=== PATIENT | female | born 2000 | race Caucasian/White ===

== ENCOUNTER → 2020-07-15 16:59 | Outpatient (BNVA) | payer SELFPAY | PROVIDERS: Family Provider Family Medicine; PCP Family Medicine; Visit Provider Nurse Practitioner Family | DX: Z20.828 Contact with and (suspected) exposure to other viral communicable diseases (principal) | CPT/HCPCS: 87635 ==

== ENCOUNTER 2020-10-11 18:00 | Inpatient (IN) | payer SELFPAY ==
[2020-10-11 18:17] VITALS: BP 117/80; PULSE 77; RESP 18; TEMP 37; O2SAT 99; BMI 29.2
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
[2020-10-11 20:27] LABS: Amphetamines Screen Urine Negative (Negative); Barbiturates Screen Urine Negative (Negative); Benzodiazepines Screen Urine Negative (Negative); Cocaine Screen Urine Negative (Negative); Opiate Screen Urine Negative (Negative); PCP Screen Urine Negative (Negative); THC Screen Urine Negative (Negative)
[2020-10-11 20:55] LABS: Add Urine Microscopic? YES; Bilirubin Urine Neg (Negative); Blood Urine Neg (Negative); Glucose Urine UA Norm (Normal); Ketones Urine 1+ (Negative); Leukocyte Esterase Urine Trace (Negative); Nitrate Urine Negative (Negative); Protein Urine Neg (Negative); Sulfosalicylic Acid Urine Negative (Negative); Urine Appearance SL Hazy (CLEAR); Urine Color Yellow (Yellow); Urobilinogen Urine 1 mg/dL (Negative); pH Urine 8 (5-7)
[2020-10-11 20:56] LABS: HCG Qualitative Urine. Negative (Negative)
[2020-10-11 20:58] LABS: Add Urine Culture? No; Bacteria Urine 1+ /hpf; Squamous Epithelial Cell Urine 15-25 /hpf (0-5)
[2020-10-11 21:03] VITALS: BP 103/69; PULSE 73; RESP 16; O2SAT 96
[2020-10-11 21:08] LABS: Basophils % 0.1 %; Eosinophils % 0.1 %; Hematocrit 43.9 % (37.0-47.0); Hemoglobin 14.9 g/dL (11.5-15.3); Lymphocytes # 1.9 10^3/uL (0.8-4.8); Mean Corpuscular HGB Conc 33.9 g/dL (30.0-36.0); Mean Corpuscular Hemoglobin 32.1 pg (28.0-34.0); Mean Corpuscular Volume 94.6 fL (81-99); Mean Platelet Volume 9.9 fL (7.4-10.4); Monocytes # 0.6 10^3/uL (0.2-0.9); Monocytes % 7.4 %; Neutrophils # 4.94 10^3/uL (1.8-7.7); Neutrophils % 66.3 %; Nucleated Red Blood Cells % 0 %; Platelet Count 252 10^3/cmm (130-400); Red Blood Count 4.64 10^6/uL (4.1-5.3); Red Cell Distribution Width 11.8 % (12.1-15.1); White Blood Count 7.5 10^3/uL (4.0-10.0)
[2020-10-11 22:00] VITALS: BP 101/60; PULSE 64; RESP 16; O2SAT 100
[2020-10-11 22:02] LABS: Alanine Aminotransferase 16 U/L (0-33); Albumin Level 4.2 g/dL (3.5-5.2); Alkaline Phosphatase 106 IU/L (35-105); Anion Gap 14.6 (5-19); Aspartate Amino Transferase 16 U/L (0-32); Blood Urea Nitrogen 13 mg/dL (6-20); Calcium 9.6 mg/dL (8.5-10.5); Carbon Dioxide 26 mmol/L (22-29); Chloride 102 mmol/L (98-107); Globulin 3.4 g/dL (1.3-4.6); Glomerular Filtration Rate 126.2 mL/min (90-130); Glucose 89 mg/dL (65-115); Osmolality Calculated 288 mOsm/kg (285-295); Potassium 3.6 mmol/L (3.5-5.1); Sodium 139 mmol/L (136-145); Thyroid Stimulating Hormone 2.22 uIU/mL (0.27-4.20); Total Bilirubin 0.3 mg/dL (0.15-1.2); Total Protein 7.6 g/dL (6.6-8.7)
[2020-10-11 22:10] LABS: Acetaminophen < 5.0 ug/mL (10-30); Alcohol Level < 10 mg/dL (0-10); Salicylate < 0.3 mg/dL (3-10)
[2020-10-11 23:00] VITALS: BP 125/83; PULSE 81; RESP 16; TEMP 36.5; O2SAT 96
[2020-10-12 00:38] VITALS: BP 125/83; PULSE 81; RESP 16; TEMP 36.5; O2SAT 98
[2020-10-12] MEDS: hyDROXYzine 25 mg Capsule 50 MG PO ×3 (01:39→20:27)
[2020-10-12] MEDS: trazodone 50 mg Tablet PO ×2 (01:39→20:27)
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
--- NOTE | 2020-10-12 03:00 | PC.NURSE ---
At 0130 the patient complained of difficulty falling asleep and anxiety. Vistaril 50 mg po given for the anxiety. Trazodone 50 mg po given for insomnia. Med teaching for the two meds completed prior to administration. The patient verbalized understanding of the meds.
[2020-10-12 06:00] VITALS: BP 102/65; PULSE 58; RESP 17; TEMP 36.8; O2SAT 96
--- NOTE | 2020-10-12 08:02 | PC.NURSE ---
Addendum entered by Cassandra Cuevas LPN 10/12/20 10:29: prn med effective no further c/o anxiety Original Note: PRN VISTARIL 50 MG GIVEN PO PER PT C/O STATED ANXIETY. PT SOMEWHAT WITHDRAWN, WILL CONT TO MONITOR
[2020-10-12 14:00] VITALS: BP 101/65; PULSE 76; RESP 18; TEMP 36.6
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
[2020-10-12] MEDS: buPROPion SR (12 HR) 150 mg Tablet PO (15:14)
[2020-10-12 20:08] VITALS: BP 105/63; PULSE 67; RESP 18; TEMP 36.7; O2SAT 95
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
[2020-10-13 05:45] VITALS: BMI 29.2
[2020-10-13 06:00] VITALS: BP 112/71; PULSE 75; RESP 16; TEMP 36.8; O2SAT 97
[2020-10-13] MEDS: buPROPion SR (12 HR) 150 mg Tablet PO (08:40)
[2020-10-13 14:00] VITALS: BP 103/67; PULSE 80; RESP 18; TEMP 37.4; O2SAT 97
[2020-10-13 19:45] VITALS: BP 96/60; PULSE 74; RESP 18; TEMP 36.1; O2SAT 97
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
[2020-10-13] MEDS: hyDROXYzine 25 mg Capsule 50 MG PO (20:36)
[2020-10-13] MEDS: trazodone 50 mg Tablet PO (20:36)
[2020-10-14 06:00] VITALS: BP 93/54; PULSE 59; RESP 16; TEMP 36.9; O2SAT 98
[2020-10-14] MEDS: buPROPion SR (12 HR) 150 mg Tablet PO ×2 (07:41→17:34)
[2020-10-14 14:00] VITALS: BP 111/72; PULSE 75; RESP 16; TEMP 37.2; O2SAT 99
[2020-10-14 16:49] VITALS: BP 111/72; PULSE 75; RESP 16; TEMP 37.2; O2SAT 99
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
== END 2020-10-14 18:10 | disposition home or self-care (01) | DRG 881 ==
LOC: ER 20:03 → NP 22:45
PROVIDERS: Nurse Practitioner Family; Admitting Provider Psychiatry & Neurology Psychiatry; Emergency Provider Emergency Medicine; PCP Family Medicine; Visit Provider Psychiatry & Neurology Psychiatry
DX: F32.9 Major depressive disorder, single episode, unspecified (principal); R45.851 Suicidal ideations; F10.10 Alcohol abuse, uncomplicated; F15.11 Other stimulant abuse, in remission; R45.850 Homicidal ideations; Z91.14 Patient's other noncompliance with medication regimen
CPT/HCPCS: 12345; 80053; 80306; 80307; 81001; 81025; 84443; 85025; 99284

== ENCOUNTER 2021-06-27 01:32 | Emergency (ER) | payer SELFPAY ==
[2021-06-27 01:41] VITALS: BP 131/89; PULSE 114; RESP 20; TEMP 36.9; O2SAT 100; BMI 22.8
--- NOTE | 2021-06-27 01:45 | ED_ITS ---
HPI - Female Genitourinary General: Chief complaint: Vaginal Bleeding Stated complaint: Vaginal Bleeding Time Seen by Provider: 06/27/21 01:42 Source: patient Mode of arrival: ambulatory Limitations: no limitations History of Present Illness: HPI Narrative: 20-year-old female states she has irregular menstruation. She states that today she has had bleeding has been heavier than normal. States her last restriction has been for months. States she is having some lower abdominal cramping. States she has been passing blood clots and going through multiple tampons. She is unsure if she is . States her pain currently is 2 out of 10. She had no vomiting or diarrhea. Denies any lightheadedness. Associated symptoms: Deny abdominal pain, headache(s) or nausea Date of Last Menstrual Period: 09/24/20 Review of Systems Const: Denies: fever(s), chills, body aches or change in appetite Eyes: Denies: blurry vision or eye discomfort ENMT: Denies: throat pain or dental pain Card: Denies: chest pain Resp: Denies: dyspnea GI: Denies: abdominal pain, nausea, vomiting or diarrhea : Reports: vaginal bleeding Musc: Denies: neck pain or back pain Skin/Breast: Denies: rash Neuro: Denies: headache(s) Psych: Denies: depression Reji/Lymph: Denies: easy bruising All/Imm: Denies: urticaria PFS ED PFSH: Medical History (Updated 06/27/21 @ 03:28 by Jason Torres MD) Psychiatric care Female Reproductive History: Date of last menstrual period: 09/24/20 Physical Exam Const: COMMON NORMALS: no acute distress, patient oriented x3 and healthy appearing HENMT: COMMON NORMALS: normocephalic and atraumatic HEAD & SCALP: normocephalic and atraumatic Eye: COMMON NORMALS: Equal, round and reactive pupils present and EOMs intact bilaterally PUPIL: Yes Equal, round and reactive pupils present Neck/C-Spine: COMMON NORMALS: full ROM and supple Chest: COMMONS NORMALS: normal inspection of the chest and normal palpation of entire chest wall Resp: COMMON NORMALS: normal respiratory effort, No retractions, No use of accessory muscles and clear to auscultation bilaterally AUSCULTATION: clear to auscultation bilaterally Cardio: COMMON NORMALS: regular rhythm and No murmurs present (Cardio) RATE: tachycardic RHYTHM: regular rhythm GI: COMMON NORMALS: Normal to inspection, nondistended, normoactive bowel sounds present, Soft to palpation, non-tender and no masses PALPATION: Yes Soft to palpation Extremity: COMMON NORMALS: normal to inspection and full ROM Neuro: COMMON NORMALS: patient oriented x3, moves all extremities and no focal motor deficits Psych: COMMON NORMALS: mental status grossly normal, Normal thought process present and cooperative THOUGHT PROCESS: Normal thought process present Skin: COMMON NORMALS: no rashes or lesions noted and no wounds GENERAL SKIN EXAM: no rashes or lesions noted Course Vital Signs: Vital signs: Vital Signs Temperature 98.5 F 06/27/21 01:41 Pulse Rate 114 H 06/27/21 01:41 Respiratory Rate 20 H 06/27/21 01:41 Blood Pressure 131/89 06/27/21 01:41 Pulse Oximetry 100 06/27/21 01:41 MDM - Female MDM Narrative: Medical decision making narrative: Patient presents with vaginal bleeding is likely her menstruation. Likely heavy due to irregular menstruation. Her hemoglobin here is normal and her is negative. She is stable for discharge is to follow-up PCP and return if worsening. Lab Data: Labs: Lab Results 06/27/21 06/27/21 06/27/21 01:57 01:57 01:57 WBC 10.7 10^3/uL H 10 ^3/uL (4.0-10.0) RBC 3.95 10^6/uL L 10 ^6/uL (4.1-5.3) Hgb 12.8 g/dL g/dL (11.5-15.3) Hct 37.8 % % (37.0-47.0) MCV 95.7 fl fl (81-99) MCH 32.4 pg pg (28.0-34.0) MCHC 33.9 g/dL g/dL (30.0-36.0) RDW 12.9 % % (12.1-15.1) Plt Count 267 10^3/cmm 10^3 /cmm (130-400) MPV 9.1 fL fL (7.4-10.4) Neut % (Auto) 69.4 % % Lymph % (Auto) 21.0 % % Platte % (Auto) 8.0 % % Eos % (Auto) 1.1 % % Baso % (Auto) 0.3 % % Neut # (Auto) 7.40 10^3/uL 10^3 /uL (1.8-7.7) Lymph # (Auto) 2.2 10^3/uL 10^3/ uL (0.8-4.8) Platte # (Auto) 0.9 10^3/uL 10^3/ uL (0.2-0.9) Eos # (Auto) 0.1 10^3/uL 10^3/ uL (0.0-0.8) Baso # (Auto) 0.0 10^3/uL 10^3/ uL (0.0-0.1) Nucleated RBC % (a uto) 0 % % Nucleated RBCs # 0.0 /100WBC /100W BC Sodium Cancelled Potassium Cancelled Chloride Cancelled Carbon Dioxide Cancelled Anion Gap Cancelled BUN Cancelled Creatinine Cancelled GFR Calculation Cancelled Glucose Cancelled Calculated Osmolal ity Cancelled Calcium Cancelled Total Bilirubin Cancelled AST Cancelled ALT Cancelled Alkaline Phosphata se Cancelled Total Protein Cancelled Albumin Cancelled Globulin Cancelled HCG, Qual Cancelled 06/27/21 06/27/21 02:58 02:58 WBC RBC Hgb Hct MCV MCH MCHC RDW Plt Count MPV Neut % (Auto) Lymph % (Auto) Platte % (Auto) Eos % (Auto) Baso % (Auto) Neut # (Auto) Lymph # (Auto) Platte # (Auto) Eos # (Auto) Baso # (Auto) Nucleated RBC % (a uto) Nucleated RBCs # Sodium 144 mmol/L mmol/L (136-145) Potassium 3.6 mmol/L mmol/L (3.5-5.1) Chloride 108 mmol/L H mmol /L (98-107) Carbon Dioxide 27 mmol/L mmol/L (22-29) Anion Gap 12.6 (5-19) BUN 11 mg/dL mg/dL (6-20) Creatinine 0.6 mg/dL mg/dL (0.5-0.9) GFR Calculation 126.2 mL/min mL/m in (90-130) Glucose 96 mg/dL mg/dL (65-115) Calculated Osmolal ity 297 mOsm/kg H mOs m/kg (285-295) Calcium 8.1 mg/dL L mg/dL (8.5-10.5) Total Bilirubin 0.2 mg/dL mg/dL (0.15-1.2) AST 10 U/L U/L (0-32) ALT 10 U/L U/L (0-33) Alkaline Phosphata se 78 IU/L IU/L (35-105) Total Protein 6.0 g/dL L g/dL (6.6-8.7) Albumin 3.3 g/dL L g/dL (3.5-5.2) Globulin 2.7 g/dL g/dL (1.3-4.6) HCG, Qual Negative (Negative) Discharge Plan Discharge Patient Disposition: Home Clinical Impression: Vaginal bleeding Condition: Stable Prescriptions: No Action No Known Home Medications RF: 0 bupropion HCl 150 mg Tablet Sustained-Release 12 Hr 150 mg PO BID 30 Days Qty: 60 RF: 1 trazodone 50 mg Tablet 50 mg PO BEDTIME PRN (Reason: Sleep) 30 Days Qty: 30 RF: 1 Discharge Orders: Discharge ED (Routine); Ordered 06/27/21 Ordered By: Jason Torres Referrals: Babatunde Watson DO [Primary Care Provider] - 1-3 days Discharge Diet: Advance as tolerated Discharge Activity: Resume usual activity Patient Instructions: Abnormal Uterine Bleeding Coding Level of Care Code ED Seam Press Operator for Stefanyg Fwd Exam Comprehensive
[2021-06-27] MEDS: sodium chloride 0.9% 1,000 ML 999 ML IV (02:00)
[2021-06-27 02:06] LABS: Basophils % 0.3 %; Eosinophils # 0.1 10^3/uL (0.0-0.8); Eosinophils % 1.1 %; Hematocrit 37.8 % (37.0-47.0); Hemoglobin 12.8 g/dL (11.5-15.3); Lymphocytes # 2.2 10^3/uL (0.8-4.8); Mean Corpuscular HGB Conc 33.9 g/dL (30.0-36.0); Mean Corpuscular Hemoglobin 32.4 pg (28.0-34.0); Mean Corpuscular Volume 95.7 fl (81-99); Mean Platelet Volume 9.1 fL (7.4-10.4); Monocytes # 0.9 10^3/uL (0.2-0.9); Neutrophils % 69.4 %; Nucleated Red Blood Cells % 0 %; Platelet Count 267 10^3/cmm (130-400); Red Blood Count 3.95 10^6/uL (4.1-5.3); Red Cell Distribution Width 12.9 % (12.1-15.1); White Blood Count 10.7 10^3/uL (4.0-10.0)
[2021-06-27 03:23] LABS: Alanine Aminotransferase 10 U/L (0-33); Albumin Level 3.3 g/dL (3.5-5.2); Alkaline Phosphatase 78 IU/L (35-105); Anion Gap 12.6 (5-19); Aspartate Amino Transferase 10 U/L (0-32); Blood Urea Nitrogen 11 mg/dL (6-20); Calcium 8.1 mg/dL (8.5-10.5); Carbon Dioxide 27 mmol/L (22-29); Chloride 108 mmol/L (98-107); Globulin 2.7 g/dL (1.3-4.6); Glomerular Filtration Rate 126.2 mL/min (90-130); Glucose 96 mg/dL (65-115); Osmolality Calculated 297 mOsm/kg (285-295); Potassium 3.6 mmol/L (3.5-5.1); Sodium 144 mmol/L (136-145); Total Bilirubin 0.2 mg/dL (0.15-1.2)
[2021-06-27 03:26] LABS: HCG, Serum Qual Negative (Negative)
[2021-06-27 04:00] VITALS: BP 126/84; PULSE 96; RESP 18; O2SAT 100
== END 2021-06-27 03:40 | disposition home or self-care (01) ==
PROVIDERS: Emergency Provider Emergency Medicine; PCP Family Medicine
DX: N93.9 Abnormal uterine and vaginal bleeding, unspecified (principal)
CPT/HCPCS: 36415; 80053; 84703; 85025; 86850; 86900; 96360; 99284; J7030

== ENCOUNTER 2021-10-21 08:56 | Emergency (ER) | payer SELFPAY ==
[2021-10-21 09:24] VITALS: BP 118/82; PULSE 62; RESP 16; TEMP 36.6; O2SAT 97; BMI 22.4
--- NOTE | 2021-10-21 09:34 | W.ED.FEMALGU ---
Documented by User: TASNEEM Espinal 10/22/21 07:04 HPI - Female Genitourinary General: Chief complaint: Urogenital-Female Stated complaint: left side pain Time Seen by Provider: 10/21/21 08:58 History of Present Illness: HPI Narrative: Patient states that she has had left-sided abdominal pain and flank pain on and off for the last few months. Have a lot of problems with urination presently with burning and pain. Denies any vaginal discharge or bleeding presently has had possible couple miscarriages past 2 years MD elicited complaint: dysuria and flank pain Pertinent past history: prior miscarriages Onset (ago): month(s) Vaginal discharge: none Urinary symptoms: Dysuria and Flank Pain Exacerbating factors: none Associated symptoms: Reports no associated symptoms and abdominal pain; Deny headache(s) or nausea Date of Last Menstrual Period: 09/24/20 Review of Systems Const: Denies: fever(s), chills or body aches Eyes: Denies: change in vision or blurry vision ENMT: Denies: throat pain or nasal congestion Card: Denies: chest pain or dyspnea on exertion Resp: Denies: dyspnea, productive cough or non-productive cough GI: Reports: abdominal pain; Denies: nausea or vomiting : Reports: flank pain and dysuria Musc: Denies: extremity pain Skin/Breast: Denies: rash Neuro: Denies: headache(s) Psych: Denies: anxiety or depression Reji/Lymph: Denies: easy bruising PFS ED PFSH: Medical History (Updated 10/21/21 @ 11:22 by TASNEEM Espinal) Psychiatric care Female Reproductive History: Date of last menstrual period: 09/24/20 Physical Exam Const: COMMON NORMALS: no acute distress, average body habitus and patient oriented x3 HENMT: COMMON NORMALS: normocephalic HEAD & SCALP: normal to inspection and normocephalic FACE & SINUS: normal facial exam Eye: COMMON NORMALS: conjunctivae normal GENERAL EYE: appearance normal, both eyes and all related structures CONJUNCTIVA: Yes conjunctivae normal Neck/C-Spine: COMMON NORMALS: no JVD Chest: COMMONS NORMALS: normal inspection of the chest Resp: COMMON NORMALS: normal respiratory effort and clear to auscultation bilaterally AUSCULTATION: clear to auscultation bilaterally Cardio: COMMON NORMALS: no JVD, regular rate and regular rhythm RATE: regular rate RHYTHM: regular rhythm GI: PALPATION: Yes Tenderness to palpation present (GI) Details: LUQ Extremity: COMMON NORMALS: normal to inspection and full ROM Neuro: COMMON NORMALS: patient oriented x3 Course Vital Signs: Vital signs: Vital Signs Temperature 97.8 F 10/21/21 09:24 Pulse Rate 110 H 10/21/21 11:40 Respiratory Rate 16 10/21/21 11:40 Blood Pressure 128/74 10/21/21 11:40 Pulse Oximetry 100 10/21/21 11:40 MDM - Female MDM Narrative: Medical decision making narrative: Patient presents here with dysuria and intermittent left flank pain over the last month or 2. Patient denies any nausea or vomiting, has not had a fever. States that she has burning with urination and frequency denies any vaginal discharge or other related problems. Lab was done and results support cystitis. Patient is encouraged to take medications drink plenty of fluids and follow-up primary care return here for any worsening symptoms. Patient also encouraged to establish with PCP and have repeat urine test done. Lab Data: Labs: Lab Results 10/21/21 10/21/21 10/21/21 10:29 10:29 10:30 WBC 6.1 10^3/uL 10^3/ uL (4.0-10.0) RBC 4.16 10^6/uL 10^6 /uL (4.1-5.3) Hgb 13.0 g/dL g/dL (11.5-15.3) Hct 39.2 % % (37.0-47.0) MCV 94.2 fl fl (81-99) MCH 31.3 pg pg (28.0-34.0) MCHC 33.2 g/dL g/dL (30.0-36.0) RDW 12.6 % % (12.1-15.1) Plt Count 238 10^3/cmm 10^3 /cmm (130-400) MPV 8.8 fL fL (7.4-10.4) Neut % (Auto) 72.9 % % Lymph % (Auto) 15.1 % % [place] % (Auto) 10.0 % % Eos % (Auto) 1.6 % % Baso % (Auto) 0.2 % % Neut # (Auto) 4.45 10^3/uL 10^3 /uL (1.8-7.7) Lymph # (Auto) 0.9 10^3/uL 10^3/ uL (0.8-4.8) [place] # (Auto) 0.6 10^3/uL 10^3/ uL (0.2-0.9) Eos # (Auto) 0.1 10^3/uL 10^3/ uL (0.0-0.8) Baso # (Auto) 0.0 10^3/uL 10^3/ uL (0.0-0.1) Nucleated RBC % (a uto) 0 % % Nucleated RBCs # 0.0 /100WBC /100W BC Sodium 137 mmol/L mmol/L (136-145) Potassium 3.8 mmol/L mmol/L (3.5-5.1) Chloride 103 mmol/L mmol/L (98-107) Carbon Dioxide 22 mmol/L mmol/L (22-29) Anion Gap 15.8 (5-19) BUN 10 mg/dL mg/dL (6-20) Creatinine 0.6 mg/dL mg/dL (0.5-0.9) GFR Calculation 125.0 mL/min mL/m in (90-130) Glucose 68 mg/dL mg/dL (65-115) Calculated Osmolal ity 281 mOsm/kg L mOs m/kg (285-295) Calcium 8.6 mg/dL mg/dL (8.5-10.5) Total Bilirubin 0.2 mg/dL mg/dL (0.15-1.2) AST 12 U/L U/L (0-32) ALT 11 U/L U/L (0-33) Alkaline Phosphata se 79 IU/L IU/L (35-105) Total Protein 6.5 g/dL L g/dL (6.6-8.7) Albumin 3.8 g/dL g/dL (3.5-5.2) Globulin 2.7 g/dL g/dL (1.3-4.6) Lipase 37 U/L U/L (13-60) HCG, Qual Urine Color Yellow (Yellow) Urine Appearance Sl hazy (CLEAR) Urine pH 7 (5-7) Ur Specific Gravit y 1.015 (1.005-1.030) Urine Protein Neg (Negative) Urine Glucose (UA) Norm (Normal) Urine Ketones Negative (Negative) Urine Blood Neg (Negative) Urine Nitrate Negative (Negative) Urine Bilirubin Neg (Negative) Urine Urobilinogen Norm mg/dL mg/dL (Negative) Ur Leukocyte Mone ase 1+ H (Negative) Urine RBC None /hpf /hpf (0-2) Urine WBC 5-10 /hpf H /hpf (0-5) Ur Squamous Epith Cells 0-4 /hpf H /hpf (0-5) Amorphous Sediment Not Reportable Urine Bacteria 2+ /hpf H /hpf (NONE) 10/21/21 10:30 WBC RBC Hgb Hct MCV MCH MCHC RDW Plt Count MPV Neut % (Auto) Lymph % (Auto) [place] % (Auto) Eos % (Auto) Baso % (Auto) Neut # (Auto) Lymph # (Auto) [place] # (Auto) Eos # (Auto) Baso # (Auto) Nucleated RBC % (a uto) Nucleated RBCs # Sodium Potassium Chloride Carbon Dioxide Anion Gap BUN Creatinine GFR Calculation Glucose Calculated Osmolal ity Calcium Total Bilirubin AST ALT Alkaline Phosphata se Total Protein Albumin Globulin Lipase HCG, Qual Negative (Negative) Urine Color Urine Appearance Urine pH Ur Specific Gravit y Urine Protein Urine Glucose (UA) Urine Ketones Urine Blood Urine Nitrate Urine Bilirubin Urine Urobilinogen Ur Leukocyte Mone ase Urine RBC Urine WBC Ur Squamous Epith Cells Amorphous Sediment Urine Bacteria Discharge Plan Discharge Patient Disposition: Home Clinical Impression: UTI (urinary tract infection) Qualifiers: Urinary tract infection type: acute cystitis Hematuria presence: without hematuria Qualified Code(s): N30.00 - Acute cystitis without hematuria Condition: Stable Prescriptions: New cephalexin 500 mg capsule 500 mg PO Q8H 7 Days Qty: 21 RF: 0 No Action bupropion HCl 150 mg Tablet Sustained-Release 12 Hr 150 mg PO BID 30 Days Qty: 60 RF: 1 trazodone 50 mg Tablet 50 mg PO BEDTIME PRN (Reason: Sleep) 30 Days Qty: 30 RF: 1 Discharge Orders: Discharge ED (Routine); Ordered 10/21/21 Ordered By: Yemi Cassidy Referrals: Babatunde Watson DO [Primary Care Provider] - Discharge Diet: Usual diet Discharge Activity: Resume usual activity Patient Instructions: Urinary Tract Infection in Women (ED) Activity Restrictions/Additional Instructions: Follow-up with medical provider as directed. Take medications as prescribed. Return to the ER or your medical provider if condition worsens. Please read and understand discharge instructions. If any questions ask please. Coding Level of Care Code ED Lease Administrator for Stefanyg Fwd Exam Comprehensive Documented by User: Davis Del Cid DO 10/22/21 08:40 HPI - Female Genitourinary General: Chief complaint: Urogenital-Female Stated complaint: left side pain Time Seen by Provider: 10/21/21 08:58 [facility] ED PFSH: Medical History (Updated 10/21/21 @ 11:22 by TASNEEM Espinal) Psychiatric care Course Vital Signs: Vital signs: Vital Signs Temperature 97.8 F 10/21/21 09:24 Pulse Rate 110 H 10/21/21 11:40 Respiratory Rate 16 10/21/21 11:40 Blood Pressure 128/74 10/21/21 11:40 Pulse Oximetry 100 10/21/21 11:40 MDM - Female MDM Narrative: Medical decision making narrative: Chart reviewed and patient discussed with midlevel. Agree with assessment and plan. Lab Data: Labs: Lab Results 10/21/21 10/21/21 10/21/21 10:29 10:29 10:30 WBC 6.1 10^3/uL 10^3/ uL (4.0-10.0) RBC 4.16 10^6/uL 10^6 /uL (4.1-5.3) Hgb 13.0 g/dL g/dL (11.5-15.3) Hct 39.2 % % (37.0-47.0) MCV 94.2 fl fl (81-99) MCH 31.3 pg pg (28.0-34.0) MCHC 33.2 g/dL g/dL (30.0-36.0) RDW 12.6 % % (12.1-15.1) Plt Count 238 10^3/cmm 10^3 /cmm (130-400) MPV 8.8 fL fL (7.4-10.4) Neut % (Auto) 72.9 % % Lymph % (Auto) 15.1 % % [place] % (Auto) 10.0 % % Eos % (Auto) 1.6 % % Baso % (Auto) 0.2 % % Neut # (Auto) 4.45 10^3/uL 10^3 /uL (1.8-7.7) Lymph # (Auto) 0.9 10^3/uL 10^3/ uL (0.8-4.8) [place] # (Auto) 0.6 10^3/uL 10^3/ uL (0.2-0.9) Eos # (Auto) 0.1 10^3/uL 10^3/ uL (0.0-0.8) Baso # (Auto) 0.0 10^3/uL 10^3/ uL (0.0-0.1) Nucleated RBC % (a uto) 0 % % Nucleated RBCs # 0.0 /100WBC /100W BC Sodium 137 mmol/L mmol/L (136-145) Potassium 3.8 mmol/L mmol/L (3.5-5.1) Chloride 103 mmol/L mmol/L (98-107) Carbon Dioxide 22 mmol/L mmol/L (22-29) Anion Gap 15.8 (5-19) BUN 10 mg/dL mg/dL (6-20) Creatinine 0.6 mg/dL mg/dL (0.5-0.9) GFR Calculation 125.0 mL/min mL/m in (90-130) Glucose 68 mg/dL mg/dL (65-115) Calculated Osmolal ity 281 mOsm/kg L mOs m/kg (285-295) Calcium 8.6 mg/dL mg/dL (8.5-10.5) Total Bilirubin 0.2 mg/dL mg/dL (0.15-1.2) AST 12 U/L U/L (0-32) ALT 11 U/L U/L (0-33) Alkaline Phosphata se 79 IU/L IU/L (35-105) Total Protein 6.5 g/dL L g/dL (6.6-8.7) Albumin 3.8 g/dL g/dL (3.5-5.2) Globulin 2.7 g/dL g/dL (1.3-4.6) Lipase 37 U/L U/L (13-60) HCG, Qual Urine Color Yellow (Yellow) Urine Appearance Sl hazy (CLEAR) Urine pH 7 (5-7) Ur Specific Gravit y 1.015 (1.005-1.030) Urine Protein Neg (Negative) Urine Glucose (UA) Norm (Normal) Urine Ketones Negative (Negative) Urine Blood Neg (Negative) Urine Nitrate Negative (Negative) Urine Bilirubin Neg (Negative) Urine Urobilinogen Norm mg/dL mg/dL (Negative) Ur Leukocyte Mone ase 1+ H (Negative) Urine RBC None /hpf /hpf (0-2) Urine WBC 5-10 /hpf H /hpf (0-5) Ur Squamous Epith Cells 0-4 /hpf H /hpf (0-5) Amorphous Sediment Not Reportable Urine Bacteria 2+ /hpf H /hpf (NONE) 10/21/21 10:30 WBC RBC Hgb Hct MCV MCH MCHC RDW Plt Count MPV Neut % (Auto) Lymph % (Auto) [place] % (Auto) Eos % (Auto) Baso % (Auto) Neut # (Auto) Lymph # (Auto) [place] # (Auto) Eos # (Auto) Baso # (Auto) Nucleated RBC % (a uto) Nucleated RBCs # Sodium Potassium Chloride Carbon Dioxide Anion Gap BUN Creatinine GFR Calculation Glucose Calculated Osmolal ity Calcium Total Bilirubin AST ALT Alkaline Phosphata se Total Protein Albumin Globulin Lipase HCG, Qual Negative (Negative) Urine Color Urine Appearance Urine pH Ur Specific Gravit y Urine Protein Urine Glucose (UA) Urine Ketones Urine Blood Urine Nitrate Urine Bilirubin Urine Urobilinogen Ur Leukocyte Mone ase Urine RBC Urine WBC Ur Squamous Epith Cells Amorphous Sediment Urine Bacteria Discharge Plan Discharge Patient Disposition: Home Clinical Impression: UTI (urinary tract infection) Qualifiers: Urinary tract infection type: acute cystitis Hematuria presence: without hematuria Qualified Code(s): N30.00 - Acute cystitis without hematuria Condition: Stable Prescriptions: New cephalexin 500 mg capsule 500 mg PO Q8H 7 Days Qty: 21 RF: 0 No Action bupropion HCl 150 mg Tablet Sustained-Release 12 Hr 150 mg PO BID 30 Days Qty: 60 RF: 1 trazodone 50 mg Tablet 50 mg PO BEDTIME PRN (Reason: Sleep) 30 Days Qty: 30 RF: 1 Discharge Orders: Discharge ED (Routine); Ordered 10/21/21 Ordered By: Yemi Cassidy Referrals: Babatunde Watson DO [Primary Care Provider] - Discharge Diet: Usual diet Discharge Activity: Resume usual activity Patient Instructions: Urinary Tract Infection in Women (ED) Activity Restrictions/Additional Instructions: Follow-up with medical provider as directed. Take medications as prescribed. Return to the ER or your medical provider if condition worsens. Please read and understand discharge instructions. If any questions ask please. Coding Level of Care Code ED Lease Administrator for Chg Fwd Exam Comprehensive
[2021-10-21 10:40] LABS: Basophils % 0.2 %; Eosinophils # 0.1 10^3/uL (0.0-0.8); Eosinophils % 1.6 %; Hematocrit 39.2 % (37.0-47.0); Lymphocytes # 0.9 10^3/uL (0.8-4.8); Lymphocytes % 15.1 %; Mean Corpuscular HGB Conc 33.2 g/dL (30.0-36.0); Mean Corpuscular Hemoglobin 31.3 pg (28.0-34.0); Mean Corpuscular Volume 94.2 fl (81-99); Mean Platelet Volume 8.8 fL (7.4-10.4); Monocytes # 0.6 10^3/uL (0.2-0.9); Neutrophils # 4.45 10^3/uL (1.8-7.7); Neutrophils % 72.9 %; Nucleated Red Blood Cells % 0 %; Platelet Count 238 10^3/cmm (130-400); Red Blood Count 4.16 10^6/uL (4.1-5.3); Red Cell Distribution Width 12.6 % (12.1-15.1); White Blood Count 6.1 10^3/uL (4.0-10.0)
[2021-10-21 10:54] LABS: Add Urine Microscopic? YES; Bilirubin Urine Neg (Negative); Blood Urine Neg (Negative); Glucose Urine UA Norm (Normal); Ketones Urine Negative (Negative); Leukocyte Esterase Urine 1+ (Negative); Nitrate Urine Negative (Negative); Protein Urine Neg (Negative); Specific Gravity, Urine 1.015 (1.005-1.030); Urine Appearance SL Hazy (CLEAR); Urine Color Yellow (Yellow); Urobilinogen Urine Norm (Negative); pH Urine 7 (5-7)
[2021-10-21 11:01] LABS: Alanine Aminotransferase 11 U/L (0-33); Albumin Level 3.8 g/dL (3.5-5.2); Alkaline Phosphatase 79 IU/L (35-105); Anion Gap 15.8 (5-19); Aspartate Amino Transferase 12 U/L (0-32); Blood Urea Nitrogen 10 mg/dL (6-20); Calcium 8.6 mg/dL (8.5-10.5); Carbon Dioxide 22 mmol/L (22-29); Chloride 103 mmol/L (98-107); Globulin 2.7 g/dL (1.3-4.6); Glucose 68 mg/dL (65-115); Lipase 37 U/L (13-60); Osmolality Calculated 281 mOsm/kg (285-295); Potassium 3.8 mmol/L (3.5-5.1); Sodium 137 mmol/L (136-145); Total Bilirubin 0.2 mg/dL (0.15-1.2); Total Protein 6.5 g/dL (6.6-8.7)
[2021-10-21 11:07] LABS: HCG Qualitative Urine. Negative (Negative)
[2021-10-21 11:19] LABS: Add Urine Culture? Yes; Bacteria Urine 2+ /hpf; Squamous Epithelial Cell Urine 0-4 /hpf (0-5)
[2021-10-21 11:40] VITALS: BP 128/74; PULSE 110; RESP 16; O2SAT 100
[2021-10-21] MEDS: cephALEXin 500 mg Capsule PO (11:41)
== END 2021-10-21 11:41 | disposition home or self-care (01) ==
PROVIDERS: Emergency Provider Nurse Practitioner Family; PCP Family Medicine
DX: N30.00 Acute cystitis without hematuria (principal)
CPT/HCPCS: 80053; 81001; 81025; 83690; 85025; 87077; 87086; 87186; 99283